=== PATIENT | male | born 1985 ===

== ENCOUNTER 2018-05-31 17:31 | Emergency (ER) | payer BC ==
--- NOTE | 2018-05-31 17:50 | Emergency Department Record ---
History of Present Illness - General Chief Complaint: Abdominal Pain Stated Complaint: ABDOMINAL PAIN Time Seen by Provider: 05/31/18 17:36 Source: Patient Mode of Arrival: Ambulatory Limitations: No limitations - History of Present Illness Initial Comments: The patient is here due to vague R lower AP for 2-3 days. The pain is mild and nagging. He has had some very mild discomfort for about a week but it got worse 2 days ago. There has been no fever, anorexia, nausea, vomiting, back pain or dysuria but has been quite constipated for 3 days. The patient was at a schedule PE with his PCP today and told her about his discomfort and was sent here for evaluation for Appendicitis. MD Complaint: Abdominal pain Onset/Timin -: Days(s) Location: RLQ Radiation: None Severity: Mild Severity scale (1-10): 4 Quality: Cramping Consistency: Constant Improves With: Nothing Worsens With: Nothing Associated Symptoms: Denies other symptoms - Related Data Home Medications Medication Instructions Recorded Confirmed Last Taken No Home Med [NO HOME MEDS] 05/31/18 05/31/18 Unknown Allergies Allergy/AdvReac Type Severity Reaction Status Date / Time No Known Allergies Allergy no Unverified 05/31/18 17:39 allergies Travel Screening - Travel/Exposure Within Last 30 Days Have you traveled within the last 30 days?: No Location Detail:: [place] - Travel/Exposure Within Last Year Have you traveled outside the [place] in the last year?: No - Additonal Travel Details Have you been exposed to anyone with a communicable illness?: No Review of Systems Constitutional: Denies: Chills, Fever Eyes: Denies: Eye discharge ENT: Denies: Congestion Respiratory: Denies: Cough, Dyspnea Past Medical History - SOCIAL HISTORY Smoking Status: Current every day smoker Alcohol Use: Heavy Alcohol Use Comment: fifth/day Drug Use: None - RESPIRATORY Hx Respiratory Disorders: No - CARDIOVASCULAR Hx Cardio Disorders: No - NEURO Hx Neuro Disorders: No - GI Hx GI Disorders: No - Hx Genitourinary Disorders: No - ENDOCRINE Hx Endocrine Disorders: No - MUSCULOSKELETAL Hx Musculoskeletal Disorders: No - PSYCH Hx Psych Problems: No - HEMATOLOGY/ONCOLOGY Hx Hematology/Oncology Disorders: No Family Medical History Any Significant Family History?: No Physical Exam - General General Appearance: Alert, Oriented x3, Cooperative, No acute distress - Head Head exam: Atraumatic, Normocephalic, Normal inspection - Eye Eye exam: Normal appearance, PERRL - Neck Neck exam: Normal inspection, Full ROM. negative: Tenderness - Respiratory Respiratory exam: Normal lung sounds bilaterally. negative: Respiratory distress - Cardiovascular Cardiovascular Exam: Regular rate, Normal rhythm, Normal heart sounds - GI/Abdominal GI/Abdominal exam: Soft, Normal bowel sounds. negative: Distended, Guarding, Rebound, Rigid, Tenderness (The abdomen is very soft and completely nontender in all 4 quads.) - Extremities Extremities exam: Normal inspection, Full ROM, Normal capillary refill. negative: Tenderness - Neurological Neurological exam: Alert. negative: Motor sensory deficit Course Vital Signs 05/31/18 17:35 Temperature 98.7 F Pulse Rate 73 Respiratory 16 Rate Blood Pressure 151/88 Pulse Ox 98 - Reevaluation(s) Reevaluation #1: The patient is presently resting with no pain or discomfort. I did explain to him that I felt it is quite unlikely he has appendicitis due to the fact he clearly is constipated, has no fever or anorexia, and is 100% nontender on abdominal exam. He is to go home and take a laxative and is to return to the ER if not better or for any worsening symptoms. 05/31/18 18:29 Reevaluation #2: The patient is doing very well on recheck. He is up walking with no pain or discomfort and is able to jump up and down with no pain or discomfort. I again explained to him that I felt it was VERY unlikely he has any surgical cause for his pain due to the normal lab tests and exam. 05/31/18 18:34 Medical Decision Making - Data Complexity MDM Data: Labs Ordered and/or Reviewed - Lab Data Result diagrams: 05/31/18 17:45 05/31/18 17:45 Disposition Disposition: Discharge Clinical Impression: Constipation Qualifiers: Constipation type: other constipation type Qualified Code(s): K59.09 - Other constipation Disposition: Home, Self-Care Condition: (2) Stable Instructions: Constipation (ED) Additional Instructions: Please drink plenty of fluids and take an OTC laxative to get your bowels moving. Please return to the ER for any worsening pain or if not better in 1-2 days. Forms: Patient Portal Access Time of Disposition: 18:31 Quality - Quality Measures Quality Measures: N/A - Blood Pressure Screening View Details: Yes Does Patient Have Any of the Following: No Blood Pressure Classification: Pre-Hypertensive BP Reading Systolic Measurement: 151 Diastolic Measurement: 88 Screening for High Blood Pressure: < Pre-Hypertensive BP, F/U Documented > [ [id number]] Pre-Hypertensive Follow-up Interventions: Referral to alternative/primary care provider.
[2018-05-31 17:54] LABS: BASO % 0.6 % (0-6); EOS % 4.8 % (0-6); GRAN % 60.3 % (47-80); HEMATOCRIT 49.1 % (42.0-52.0); LYMPH % 27.8 % (16-45); MEAN CORPUSCULAR HGB CONC 34.6 g/dl (32-36); MONO % 6.5 % (0-9); PLATELET COUNT 238 K/uL (130-400); RED BLOOD COUNT 5.71 M/uL (4.40-5.70); RED CELL DISTRIBUTION WIDTH 13.1 % (11.5-14.5); URINE APPEARANCE CLEAR; URINE BILIRUBIN NEGATIVE (NEGATIVE); URINE BLOOD NEGATIVE (NEGATIVE); URINE COLOR YELLOW; URINE GLUCOSE (UA) NEGATIVE (NEGATIVE); URINE KETONE TRACE (NEGATIVE); URINE LEUKOCYTE ESTERASE NEGATIVE (NEGATIVE); URINE NITRITE NEGATIVE (NEGATIVE); URINE PROTEIN NEGATIVE (NEGATIVE); URINE UROBILINOGEN 0.2 E.U./dL (0.20 - 1.00); WHITE BLOOD COUNT W/O DIFF 8.3 K/uL (4.2-12.2)
[2018-05-31 17:55] LABS: MEAN CORPUSCULAR HEMOGLOBIN 29.7 pg (27-33)
[2018-05-31 18:08] LABS: BLOOD UREA NITROGEN 14 mg/dL (6-20); CREATININE 0.8 mg/dL (0.7-1.2); EST GLOMERULAR FILTRATION RATE > 60 mL/min; TOTAL PROTEIN 7.8 g/dL (6.6-8.7)
[2018-05-31 18:10] LABS: GLUCOSE,RANDOM 101 mg/dL (74-109)
[2018-05-31 18:13] LABS: ALBUMIN 5.1 g/dL (4.0-5.0); ALKALINE PHOSPHATASE 67 U/L (40-129); ALT/SGPT 37 U/L (<41); AST/SGOT 23 U/L (10.0-50.0); LIPASE 31 U/L (13-60)
[2018-05-31 18:15] LABS: BILIRUBIN,DIRECT < 0.2 mg/dL (0-0.3)
== END 2018-05-31 18:45 | disposition home or self-care (01) ==
LOC: ER 17:31
DX: K59.09 Other constipation (principal); R10.31 Right lower quadrant pain; F17.210 Nicotine dependence, cigarettes, uncomplicated; Z13.220 Encounter for screening for lipoid disorders; M25.551 Pain in right hip; M25.552 Pain in left hip; Z76.89 Persons encountering health services in other specified circumstances
CPT/HCPCS: 80048; 80053; 80061; 80076; 81003; 83690; 85025; 99283